=== PATIENT | female | born 1945 | race Caucasian/White ===

== ENCOUNTER 2017-07-03 11:21 | Day surgery (SDC) | payer MEDICARE ==
[~2017-07-03 11:21] MED LIST: Buffered Lidocaine 0.9% SYRIN* 5 ML/SYR SYRINGE INTRADERM ONE
[2017-07-03] MEDS ORDERED: Buffered Lidocaine 0.9% SYRIN* 5 ML/SYR SYRINGE ONE (11:37)
[2017-07-03] MEDS ORDERED: Ondansetron INJ* 2 MG/ML VIAL ONE (13:08)
[2017-07-03] MEDS ORDERED: Propofol* 10 MG/ML 20 ML BTL IV PUSH ONE (13:08)
[2017-07-03] MEDS ORDERED: Dexamethasone IV* 4 MG/ML 1 ML (4 MG) ONE (13:08)
[2017-07-03] MEDS ORDERED: Succinylcholine* 20 MG/ML 10 ML VIAL ONE (13:08)
[2017-07-03] MEDS ORDERED: fentaNYL* 50 MCG/ML 2 ML VIAL (100 MCG VIAL) ONE (13:08)
[2017-07-03] MEDS ORDERED: Scopolamine 1.5 mg* PATCH ONE (13:09)
[2017-07-03] MEDS ORDERED: Lidocaine 2% PF * 5 ML VIAL ONE (13:09)
[2017-07-03] MEDS ORDERED: DiMENhydriNATE IV* 50 MG/ML VIAL IV PUSH PRN (13:43)
[2017-07-03] MEDS ORDERED: fentaNYL* 50 MCG/ML 2 ML VIAL (100 MCG VIAL) IV PRN (13:43)
[2017-07-03] MEDS ORDERED: Naloxone* 0.4 MG/ML 1 ML VIAL IV PRN (13:43)
[2017-07-03] MEDS ORDERED: Acetaminophen TAB* 325 MG PO PRN (13:43)
[2017-07-03] MEDS ORDERED: oxyCODONE TAB* 5 MG TAB PO PRN (13:43)
[2017-07-03 16:09] VITALS: BP 146/77
--- NOTE | 2017-07-04 08:32 | PRO ---
BRONCHOSCOPY REPORT: DATE OF PROCEDURE: 07/03/17 - [facility] PROCEDURE PERFORMED BY: Dr. Cruz PROCEDURE PERFORMED: Bronchoscopy with endobronchial ultrasound guided fine needle aspiration of station L4 and L10 nodes. PREPROCEDURAL DIAGNOSES: History of breast cancer, lymphadenopathy. ANESTHESIOLOGIST: Dr. Hernandez. ANESTHESIA: General anesthesia. DESCRIPTION OF PROCEDURE: Informed consent was obtained from the patient prior to the procedure after all the risks and benefits were thoroughly explained. The patient was diagnosed with breast cancer in the past, has received radiation and chemo. The patient had surveillance PET scan and was noted to have PET positive lymph nodes in L4 and hilar area. Appropriate time-out was agreed on by attending staff prior to the procedure. Informed consent was obtained after all the risks and benefits including risk of pneumothorax mediastinitis were thoroughly explained. The patient was supine on operating table, SCDs, Jessica Hugger was placed. A flexible Olympus bronchoscope was inserted through ET tube for airway inspection. No endobronchial lesions were noted. Thick white secretions were noted and were suctioned. Bronchoscope was then withdrawn and EBUS bronchoscope was inserted through ET tube. Station L4 lymph node was accessed with 7 passes. Rapid onsite evaluation revealed adequate pass with lymphatic tissue, malignant cells were not definitely ascertained. Rest of the specimen was placed in formalin. Station L10 node was sampled with 5 passes. Rapid onsite evaluation revealed lymphatic tissue. No suspicious cells were noted on MICHAEL examination. Minimal bleeding was noted. The patient tolerated the procedure well. The patient was extubated and seen in Recovery in optimal condition. [id number]/[facility] #: [id number] [facility]
[2017-07-06] MEDS ORDERED: Scopolamine PATCH Remove* 1 NOTE MISC PATCH OFF ONE (13:45)
== END 2017-07-03 16:19 | disposition home or self-care (01) ==
LOC: OR 11:21
PROVIDERS: ATTEND Internal Medicine
DX: R59.0 Localized enlarged lymph nodes (principal); Z85.3 Personal history of malignant neoplasm of breast; E78.5 Hyperlipidemia, unspecified; E03.9 Hypothyroidism, unspecified; Z87.891 Personal history of nicotine dependence; M19.90 Unspecified osteoarthritis, unspecified site; E78.00 Pure hypercholesterolemia, unspecified
CPT/HCPCS: 88172; 88173; 88177; 88305; 88342; 88360; A9270-GY; J0330; J1100; J2405; J2704; J3010